=== PATIENT | female | born 1975 | race Caucasian/White ===

== ENCOUNTER → 2022-11-26 16:00 | Outpatient (BNVA) | payer MEDICARE, SELFPAY | PROVIDERS: PCP Nurse Practitioner Family; Visit Provider Nurse Practitioner Family | DX: J30.89 Other allergic rhinitis (principal); R60.9 Edema, unspecified; F41.9 Anxiety disorder, unspecified; F32.A Depression, unspecified; Z13.6 Encounter for screening for cardiovascular disorders | CPT/HCPCS: 80053; 80061; 83880; 84443; 85025 ==

== ENCOUNTER → 2023-09-09 14:04 | Outpatient (BNVA) | payer MEDICARE, SELFPAY | PROVIDERS: PCP Nurse Practitioner Family; Visit Provider Nurse Practitioner Family | DX: F41.9 Anxiety disorder, unspecified (principal); F32.A Depression, unspecified; I10 Essential (primary) hypertension; R60.9 Edema, unspecified; Z13.6 Encounter for screening for cardiovascular disorders; J40 Bronchitis, not specified as acute or chronic; J06.9 Acute upper respiratory infection, unspecified; Z79.899 Other long term (current) drug therapy | CPT/HCPCS: 80053; 80061; 84443; 85025 ==

== ENCOUNTER 2023-09-11 17:52 | Emergency (ER) | payer MEDICARE, SELFPAY ==
[2023-09-11 18:06] VITALS: BP 153/75; PULSE 117; RESP 22; TEMP 38.7; O2SAT 93; BMI 36.6
--- NOTE | 2023-09-11 18:22 | XRR_ITS ---
PROCEDURE INFORMATION: Exam: XR Chest Exam date and time: 09/11/2023 7:36 PM Age: 48 years old Clinical indication: Cough and shortness of breath; Prior surgery; Surgery date: 6+ months; Surgery type: Gb; Patient HX: Cough with SOB TECHNIQUE: Imaging protocol: Radiologic exam of the chest. Views: 1 view. COMPARISON: No relevant prior studies available. FINDINGS: Lungs: Clear, symmetrically inflated lungs. Pleural spaces: No pleural effusion. No pneumothorax. Heart/Mediastinum: Cardiac silhouette is normal in size for technique. Bones/joints: Age appropriate. XR/XR chest 1V portable [id number] IMPRESSION: No acute cardiopulmonary abnormality.
[2023-09-11 18:57] LABS: Basophils % 0.3 %; Hematocrit 38.1 % (36-47); Lymphocytes # 1.8 10^3/uL (0.8-4.8); Lymphocytes % 14.1 %; Mean Corpuscular HGB Conc 33.1 g/dL (30-55); Mean Corpuscular Hemoglobin 28.8 pg (27-33); Monocytes # 1.1 10^3/uL (0.2-0.9); Monocytes % 8.6 %; Neutrophils # 9.86 10^3/uL (1.8-7.7); Neutrophils % 76.6 %; Nucleated Red Blood Cells % 0 %; Platelet Count 387 10^3/cmm (157-399); Red Blood Count 4.38 10^6/uL (3.85-5.65); Red Cell Distribution Width 13.4 % (12.1-15.1); White Blood Count 12.87 10^3/uL (3.29-11.43)
--- NOTE | 2023-09-11 19:06 | W.ED.SOB ---
HPI - SOB/Dyspnea General: Chief Complaint: Shortness of Breath/Dyspnea Stated Complaint: fever Time Seen by Provider: 09/11/23 19:03 History of Present Illness: HPI Narrative: Patient presents emergency room with about a week of shortness of breath and cough, nausea and vomiting, no abdominal pain. She has had subjective fevers. She has burning in her chest. Review of Systems Narrative: Constitutional symptoms: Negative except as documented in HPI. Skin symptoms: Negative except as documented in HPI. Eye symptoms: Negative except as documented in HPI. ENMT symptoms: Negative except as documented in HPI. Respiratory symptoms: Negative except as documented in HPI. Cardiovascular symptoms: Negative except as documented in HPI. Gastrointestinal symptoms: Negative except as documented in HPI. Genitourinary symptoms: Negative except as documented in HPI. Musculoskeletal symptoms: Negative except as documented in HPI. Neurologic symptoms: Negative except as documented in HPI. Psychiatric symptoms: Negative except as documented in HPI. Endocrine symptoms: Negative except as documented in HPI. [facility] ED PFSH: Medical History (Updated 09/11/23 @ 20:36 by Mary Pagan MD) Finger fracture Anxiety and depression History of opioid abuse Peripheral edema Environmental and seasonal allergies Surgical History History of appendectomy History of cholecystectomy Family History Father CAD (coronary artery disease) Mother Diabetes Social History Smoking and tobacco/nicotine status: current every day tobacco/nicotine user cigarettes Quit status (tobacco/nicotine): not considering quitting Second hand smoke exposure: Yes Alcohol intake: never Substance/Drug Use: former Date of last use: 5MO Lives independently: Yes Household members: spouse Housing: House Marital status: Physical Exam Narrative: EXAM NARRATIVE: General: Alert, no acute distress. Skin: Warm, dry. Head: Normocephalic, atraumatic. Neck: Supple, trachea midline. Eye: Extraocular movements are intact. Ears, nose, mouth and throat: mucosa moist. Cardiovascular: Regular, Normal peripheral perfusion. Respiratory: Lungs are clear to auscultation, respirations are non-labored, breath sounds are equal, Symmetrical chest wall expansion. Gastrointestinal: Soft, Nontender, Non distended, Normal bowel sounds. Musculoskeletal: Normal ROM, no deformity. Neurological: Alert and oriented, No focal neurological deficit observed. Psychiatric: Cooperative, appropriate mood & affect. Course Vital Signs: Vital signs: Vital Signs Temperature 101.6 F H 09/11/23 18:06 Pulse Rate 90 09/11/23 20:00 Respiratory Rate 22 H 09/11/23 20:00 Blood Pressure 144/69 09/11/23 20:00 Pulse Oximetry 95 09/11/23 20:00 Oxygen Delivery Me thod Room Air 09/11/23 18:06 MDM - SOB/Dyspnea Medical Decision Making Differential diagnosis for patient with shortness of breath includes but is not limited to and based on the above HPI, review of systems and physical exam: Pneumonia. Bronchitis. Asthma or COPD with acute exacerbation. Acute coronary syndrome / [place]. Pulmonary embolism. Anxiety. Congestive heart failure. Viral infections including influenza and Covid-19. Atrial fibrillation. Anxiety. Pleural effusion. Pneumothorax. Workup: Lab work, chest X-ray and EKG ordered to evaluate, rule in and rule out above pathologies Lab Review: Laboratory results were reviewed and interpreted by myself the emergency room physician. Patient has mild white count. She was tachycardic and febrile. Patient will call back about a viral respiratory panel. Chest x-ray: No acute process. No infiltrate. No pneumothorax. No cardiomegaly. This was reviewed and interpreted by myself the ER physician. I reviewed the patient's medical record. Reexamination: Patient is in no distress. No increased work of breathing. She seems to be feeling better. Heart rate is come down with fluids. Assessment and plan: -IV Levaquin, IV normal saline bolus, [place], IV Solu-Medrol, ibuprofen - Discharged home - Discussed findings and plan with patient. Answered any questions. - All laboratory values were reviewed and interpreted personally by myself, the ER physician - All imaging was reviewed and interpreted personally by myself, the ER physician. - Evaluation and treatment of this problem were appropriate in the emergency setting Lab Data 09/11/23 18:41 09/11/23 18:41 Labs/Radiology: Laboratory Results WBC 12.87 10^3/uL (3.29-11.43) H 09/11/23 18:41 RBC 4.38 10^6/uL (3.85-5.65) 09/11/23 18:41 Hgb 12.60 g/dL (11.27-16.99) 09/11/23 18:41 Hct 38.1 % (36-47) 09/11/23 18:41 MCV 87.0 fl (85-98) 09/11/23 18:41 MCH 28.8 pg (27-33) 09/11/23 18:41 MCHC 33.1 g/dL (30-55) 09/11/23 18:41 RDW 13.4 % (12.1-15.1) 09/11/23 18:41 Plt Count 387 10^3/cmm (157-399) 09/11/23 18:41 MPV 10.0 fL (7.4-10.4) 09/11/23 18:41 Neut % (Auto) 76.6 % 09/11/23 18:41 Lymph % (Auto) 14.1 % 09/11/23 18:41 [place] % (Auto) 8.6 % 09/11/23 18:41 Eos % (Auto) 0.0 % 09/11/23 18:41 Baso % (Auto) 0.3 % 09/11/23 18:41 Neut # (Auto) 9.86 10^3/uL (1.8-7.7) H 09/11/23 18:41 Lymph # (Auto) 1.8 10^3/uL (0.8-4.8) 09/11/23 18:41 [place] # (Auto) 1.1 10^3/uL (0.2-0.9) H 09/11/23 18:41 Eos # (Auto) 0.0 10^3/uL (0.0-0.8) 09/11/23 18:41 Baso # (Auto) 0.0 10^3/uL (0.0-0.1) 09/11/23 18:41 Nucleated RBC % (auto) 0 % 09/11/23 18: Nucleated RBCs # 0.0 /100WBC 09/11/23 18:41 Sodium 132 mmol/L (136-145) L 09/11/23 18:41 Potassium 3.7 mmol/L (3.5-5.1) 09/11/23 18:41 Chloride 94 mmol/L (98-107) L 09/11/23 18:41 Carbon Dioxide 25 mmol/L (22-29) 09/11/23 18:41 Anion Gap 16.7 (5-19) 09/11/23 18:41 BUN 15 mg/dL (6-20) 09/11/23 18:41 Creatinine 1.0 mg/dL (0.5-0.9) H 09/11/23 18:41 GFR Calculation 59.2 mL/min (90-130) L 09/11/23 18:41 Glucose 117 mg/dL (65-115) H 09/11/23 18:41 Calculated Osmolality 276 mOsm/kg (285-295) L 09/11/23 18:41 Lactic Acid 0.9 mmol/L (0.5-2.2) 09/11/23 18:41 Calcium 9.3 mg/dL (8.5-10.5) 09/11/23 18:41 Total Bilirubin 0.3 mg/dL (0.15-1.2) 09/11/23 18:41 AST 17 U/L (0-32) 09/11/23 18:41 ALT 19 U/L (0-33) 09/11/23 18:41 Alkaline Phosphatase 85 U/L (35-105) 09/11/23 18:41 NT-Pro-B Natriuret Pep 41 pg/mL (0-125) 09/11/23 18:41 Total Protein 8.1 g/dL (6.6-8.7) 09/11/23 18:41 Albumin 4.5 g/dL (3.5-5.2) 09/11/23 18:41 Globulin 3.6 g/dL (1.3-4.6) 09/11/23 18:41 All radiology interpretation(s) finalized by discharge Discharge Plan Discharge Patient Disposition: Home Clinical Impression: Bronchitis, Tobacco dependence Condition: Stable Prescriptions: New prednisone 20 mg tablet 60 mg PO DAILY Qty: 20 0RF Rx Instructions: 3 tabs (60 mg) x 3 days. 2 tabs (40 mg) x 3 days. 1 tab (20 mg) x 3 days. 1/2 tab (10 mg) x 4 days albuterol sulfate 90 mcg/actuation HFA aerosol inhaler 2 inh inhalation Q4H PRN (Reason: shortness of breath or wheezing) Qty: 6.7 0RF Rx Instructions: Please provide patient with a spacer levofloxacin 750 mg tablet 750 mg PO DAILY 7 Days Qty: 7 0RF No Action vilazodone 20 mg tablet 20 mg PO DAILY Rx Instructions: must administer with a meal/food buprenorphine-naloxone 8-2 mg film 0.5 film buccal TID omega-3 fatty acids 1,000 mg capsule 1,000 mg PO DAILY Centrum Complete 18-400 mg-mcg tablet 1 tab PO DAILY oxymetazoline [Afrin (oxymetazoline)] 0.05 % spray,non-aerosol 2 spray intranasal Q12H PRN loratadine [Claritin] 10 mg tablet 10 mg PO DAILY Qty: 90 3RF fluticasone propionate [Flonase Allergy Relief] 50 mcg/actuation spray,suspension 2 spray intranasal DAILY Qty: 16 4RF Rx Instructions: administer into each nostril buspirone 5 mg tablet 5 mg PO BID Qty: 60 1RF celecoxib [Celebrex] 200 mg capsule 200 mg PO BID Qty: 30 1RF albuterol sulfate [Ventolin HFA] 90 mcg/actuation HFA aerosol inhaler 2 puff inhalation 6XD PRN (Reason: shortness of breath or wheezing) Qty: 8.5 0RF azithromycin [Zithromax] 250 mg tablet See Rx Instructions PO .COMPLEX Qty: 6 0RF Rx Instructions: For 250 mg dose pack: take 500 mg today (day 1), then 250 mg for 4 days (days 2-5) PO benzonatate 100 mg capsule 100 mg PO TID PRN (Reason: cough) Qty: 90 0RF triamterene-hydrochlorothiazid 37.5-25 mg tablet See Rx Instructions .ROUTE .COMPLEX Qty: 30 3RF Dose Instruction: TAKE ONE TABLET BY MOUTH EVERY MORNING Rx Instructions: TAKE ONE TABLET BY MOUTH EVERY MORNING methylprednisolone [Medrol (Caesar)] 4 mg tablets,dose pack See Rx Instructions PO PER PKG DIR Qty: 21 0RF Rx Instructions: PO PER PKG DIR Asmanex Twisthaler 220 mcg/ actuation (30) aerosol powdr breath activated 2 inh inhalation BID Qty: 1 11RF tizanidine 4 mg tablet See Rx Instructions .ROUTE .COMPLEX Qty: 20 1RF Dose Instruction: TAKE ONE TABLET BY MOUTH At Bedtime NEEDED FOR muscle spasticity Rx Instructions: TAKE ONE TABLET BY MOUTH At Bedtime NEEDED FOR muscle spasticity Discharge Orders: Discharge ED (Routine); Ordered 09/11/23 Ordered By: Mary Pagan Referrals: Naomy Nagel FNP [Primary Care Provider] - (You have been screened and evaluated and felt safe for discharge. Health conditions do change or evolve sometimes and as such it is important that you follow up with your Primary Doctor to be re checked, 3-5 days is a general good time frame for follow up. You are always welcome to return to the ED for re assessment if your symptoms are worsening or you have new concerns) Patient Instructions: How to Stop Smoking (ED), Acute Bronchitis (ED) Coding Level of Care Code ED Rn Night for Magy Paredes
[2023-09-11 19:10] LABS: Lactic Sepsis W/Reflex 0.9 mmol/L (0.5-2.2)
[2023-09-11 19:21] VITALS: BP 160/72; PULSE 100; RESP 19; O2SAT 92
[2023-09-11 19:21] LABS: Alanine Aminotransferase 19 U/L (0-33); Albumin Level 4.5 g/dL (3.5-5.2); Alkaline Phosphatase 85 U/L (35-105); Anion Gap 16.7 (5-19); Aspartate Amino Transferase 17 U/L (0-32); Blood Urea Nitrogen 15 mg/dL (6-20); Calcium 9.3 mg/dL (8.5-10.5); Carbon Dioxide 25 mmol/L (22-29); Chloride 94 mmol/L (98-107); Creatinine Clr Calc Pharmacy 80.4982; Globulin 3.6 g/dL (1.3-4.6); Glomerular Filtration Rate 59.2 mL/min (90-130); Glucose 117 mg/dL (65-115); NT Pro B Type Natriuretic Pept 41 pg/mL (0-125); Osmolality Calculated 276 mOsm/kg (285-295); Potassium 3.7 mmol/L (3.5-5.1); Sodium 132 mmol/L (136-145); Total Bilirubin 0.3 mg/dL (0.15-1.2); Total Protein 8.1 g/dL (6.6-8.7)
[2023-09-11] MEDS: sodium chloride 0.9% 1,000 ML 999 ML IV ×2 (19:38→20:04)
[2023-09-11] MEDS: methylPREDNISolone sod succ 125 mg/2 mL INJ IVP (19:38)
[2023-09-11 20:00] VITALS: BP 144/69; PULSE 90; RESP 22; O2SAT 95
[2023-09-11] MEDS: HYDROcodone-acetaminophen 10-325 mg Tablet 1 TAB PO (20:03)
[2023-09-11] MEDS: levofloxacin-dextrose 5 % 750 MG/150 ML PREMIX 100 MG IV (20:04)
[2023-09-11] MEDS: ondansetron 2 mg/ML SDV 2 mL 4 MG IVP (20:05)
[2023-09-11] MEDS: ibuprofen 800 mg tablet PO (21:01)
[2023-09-11 21:03] VITALS: PULSE 89; RESP 18; TEMP 37.6; O2SAT 91
[2023-09-11 21:05] VITALS: BP 130/67
[2023-09-11 21:31] LABS: Adenovirus Not Detected (NOT DETECT); Chlamydia Pneumoniae Not Detected (NOT DETECT); Coronavirus 229E,HKU1,NL63,OC4 Not Detected (NOT DETECT); Human Metapneumovirus Not Detected (NOT DETECT); Human Rhinovirus/Enterovirus Not Detected (NOT DETECT); Influenza A Not Detected (NOT DETECT); Influenza A H1 Not Detected (NOT DETECT); Influenza A H1-2009 Not Detected (NOT DETECT); Influenza A H3 Not Detected (NOT DETECT); Influenza B Not Detected (NOT DETECT); Mycoplasma Pneumoniae Not Detected (NOT DETECT); Parainfluenza Virus Type 1 Not Detected (NOT DETECT); Parainfluenza Virus Type 2 Not Detected (NOT DETECT); Parainfluenza Virus Type 3 Detected (NOT DETECT); Parainfluenza Virus Type 4 Not Detected (NOT DETECT); Respiratory Syncytial Virus A Not Detected (NOT DETECT); Respiratory Syncytial Virus B Not Detected (NOT DETECT); SARS-COV-2 Not Detected (NOT DETECT)
== END 2023-09-11 22:13 | disposition home or self-care (01) ==
PROVIDERS: Emergency Medicine; Emergency Provider Emergency Medicine; PCP Nurse Practitioner Family
DX: J40 Bronchitis, not specified as acute or chronic (principal); F17.210 Nicotine dependence, cigarettes, uncomplicated
CPT/HCPCS: 36415; 71045; 80053; 83605; 83880; 85025; 87040; 87486; 87581; 87633; 96365; 96366; 96375; 99284; J1956; J2405; J2919; J7030